=== PATIENT | female | born 1945 | race Caucasian/White ===

== ENCOUNTER 2020-04-09 11:26 | Outpatient (CLI) | payer MEDICARE, SELFPAY ==
[2020-04-09 12:05] LABS: SARS-CoV-2 Ag Negative (Negative)
== END 2020-04-09 11:27 | disposition home or self-care (01) ==
LOC: CHSLAB 11:32
PROVIDERS: PCP Internal Medicine; Visit Provider Internal Medicine
DX: Z20.828 Contact with and (suspected) exposure to other viral communicable diseases (principal)
CPT/HCPCS: 87426

== ENCOUNTER 2023-07-11 11:00 | Outpatient (RCR) | payer MEDICARE, OTHER, SELFPAY ==
--- NOTE | 2023-06-03 15:17 | PTOPEVAL1 ---
Assessment and note entered by Kristine Pulido, PT Evaluation Information Assessment Status Evaluation Diagnosis Unspec injury of R shoulder and upper arm, initial enc., oth spec joint disorders abnormal posture weakness Subjective Information two weeks ago, was in the bathroom and reached down to wipe herself and felt a pop and excruciating pain in right shoulder immediately. Went to another room and sat down, and couldn't lift her glass for a drink with her right arm. This went like this for 2-3 days. Gradually got better. Held driving for 4-6 days. Reaching to put purse in the seat net to her she couldn't put her purse to the side. Has a knot on her upper arm too. Can undress her outer layer now and feel it but couldn't do it before. Pain will come and go, depending on activity for the day. Describes as not a dull ache but just hurts, sometimes is like a burn from the ack of the shoulder joint and down into the front of the arm. Reported Pain Level Pain Score 2: Self Report Assessment PT Clinical Summary Pt presents with right shoulder issues that started 2 weeks ago. Initially heard a loud pop and had immediate pain that reduced over time but continues to range 1-4/10. Pt has normal ROM however does have a dull ache after testing. She also has some mild deficits in strength compared to RUE, but most importantly shoulder special testing is suggestive of labral tear and short head of biceps tear. Pt has been educated on findings and additional treatment options and has opted to try PT. Pt will likely demonstrate improvements in pain, strength, and functional ADLs with skilled therapy services to return to her PLOF. Plan of Care Interventions Electrical Stimulation,Hot Pack/Cold Pack,Manual Therapy,Neuro Re-education,Patient/Caregiver Educati,Therapeutic Activities,Therapeutic Exercise,Self-Care/Home Management,Ultrasound PT Services Indicated Yes Treatment Frequency and 1-2x weekly x 10 visits Duration These treatments will address the objective and functional deficits as defined above. The patient will be advanced safely and appropriately in order for the patient to progress towards his/her prior level of function. Additional exercises will be introduced and as well as a comprehensive home exercise program upon discharge, if needed, ?to ensure carryover of function
--- NOTE | 2023-06-03 15:17 | OPREHPOC ---
Outpatient Therapy Plan of Care This is a Multidisciplinary Plan of Care that may contain components documented by all disciplines (PT, OT, and ST.) PT Goal 1 Goal Pt will be independent in HEP Pt will verbalize understanding of diagnosis and prognosis Target Visit 10 PT Problem 2 PT Problem #2 Pain PT Goal 1 Goal Pt will report greatest pain level at 2/10 or less to improve ADLs and activities Target Visit 5 PT Goal 2 Goal Pt will report resolution of pain to return to PLOF Target Visit 10 PT Problem 3 PT Problem #3 Impaired Strength PT Goal 1 Goal Pt will demo strength of 4/5 or greater in all tested planes Target Visit 10 PT Problem 4 PT Problem #4 Impaired Functional ADLs PT Goal 1 Goal Pt will report ability to perform her ADLs with minimal to no modifications to return to her PLOF Target Visit 10
--- NOTE | 2023-07-11 11:35 | PTOPDC ---
Assessment and note entered by Kristine Pulido, PT Assessment Status Discharge Diagnosis Unspec injury of R shoulder and upper arm, initial enc., oth spec joint dis Subjective Information Pt states she feels good, pretty close to 100%. States noticed more with driving pushing forward with gear shifts. States on days is not driving is not pain free but might be a 0.5 out of 1 . States takes tylenol for her back not really for her shoulder, is no longer icing. Reported Pain Level Pain Score 1: Self Report Assessment PT Clinical Summary Pt reports feeling nearly 100%. Demo's full active ROM without increased discomfort. Multiple special tests that were positive are negative however pt cont to demo (+) Nelson sign and (+) crank test for bicep tear and labral tear. Pt is independent in her HEP, feels she has addressed all her needs, pain ranges from 0.5-2/10. Pt has met all goals with exception of worst pain at 2/10 versus goal of 0/10. Pt has been educated on findings, possible options to address findings, and her goals. Pt is pleased with her progress and current functional level, thus is being discharged from therapy services for meeting her goals. Plan of Care PT Services Indicated No
== END 2023-07-11 13:05 | disposition home or self-care (01) ==
LOC: ANHHIPT 11:00
PROVIDERS: PCP Family Medicine; Visit Provider Family Medicine
DX: M25.511 Pain in right shoulder (principal); S49.91XD Unspecified injury of right shoulder and upper arm, subsequent encounter
CPT/HCPCS: 97110; 97112; 97161; 97530; 97750